=== PATIENT | male | born 1995 | race African-American/Black ===

== ENCOUNTER 2018-11-17 17:03 | Emergency (ER) | payer OTHER, SELFPAY ==
[2018-11-17 17:11] VITALS: BP 142/75; PULSE 106; RESP 16; TEMP 37.5; O2SAT 96; BMI 24.5
--- NOTE | 2018-11-17 17:16 | DI.RAD.S_ITS ---
PROCEDURE: XR FOOT LT MIN 3V INDICATIONS: basketball injury TECHNIQUE: 3 views of the foot were acquired. COMPARISON: None. FINDINGS: Bones: Focal irregularity is seen involving the medial cuneiform. The bony structures otherwise are unremarkable. Soft tissues: No tibiotalar joint effusion. Achilles tendon appears normal. IMPRESSION: Focal irregularity is seen involving the medial cuneiform. Differential diagnosis includes a nondisplaced fracture or artifactual irregularity. Please correlate with focal tenderness. If clinically appropriate, consideration could be given to a dedicated CT study. Dictated by: Kaiser Arreguin M.D. on 11/17/2018 at 16:44 Approved by: Kaiser Arreguin M.D. on 11/17/2018 at 16:45
--- NOTE | 2018-11-17 18:41 | ED_ITS ---
HPI - Extremity Injury (Lower) General Chief Complaint: Extremity Injury, Lower Stated Complaint: left foot injury playing basketball Time Seen by Provider: 11/17/18 18:17 Source: patient Mode of arrival: ambulatory Limitations: no limitations History of Present Illness HPI Narrative: 23-year-old male nonsmoker, otherwise healthy presents with chief complaint of left foot injury after playing basketball earlier today. He had gone up for a rebound and came down, landing on an inverted ankle and then was stepped on by another player. He had pain over the instep and medial aspect of his foot, primarily with ambulating. He denies numbness, tingling weakness. He denies any ankle, knee or hip pain. He denies any history of the same. MD complaint: foot injury Onset (ago): hour(s) Type of Injury: blunt and inversion Place: street/outdoors Severity: moderate Relieving factors: immobilization and rest Exacerbating factors: weight bearing Context: fall, direct blow and jumping Associated symptoms: swelling and able to partially bear weight Other symptoms: none Treatments prior to arrival: cold therapy Related Data Allergies Allergy/AdvReac Type Severity Reaction Status Date / Time No Known Drug Allergies Allergy Verified 11/17/18 17:22 Review of Systems Constitutional Denies chills, Denies fever(s), Denies lethargy and Denies weakness Eyes Denies change in vision, Denies eye discharge, Denies irritation and Denies loss of vision ENT Ears, Nose, Mouth, and Throat: Denies change in voice, Denies neck pain and Denies sore throat Cardiovascular Denies chest pain, Denies irregular heart rhythm, Denies lightheadedness, Denies palpitations, Denies dyspnea, Denies dyspnea on exertion and Denies orthopnea Respiratory Denies cough, Denies dyspnea, Denies dyspnea on exertion and Denies wheezing Gastrointestinal Gastrointestinal: Denies abdominal pain, Denies change in bowel habits, Denies diarrhea, Denies nausea and Denies vomiting Genitourinary Denies hematuria, Denies flank pain, Denies urinary incontinence and Denies urinary urgency Musculoskeletal Reports abnormal gait, Reports limited range of motion and Denies neck pain Integumentary/Breasts Denies pruritus, Denies erythema, Denies rash and Denies wounds Neurologic Reports abnormal gait, Denies confusion, Denies loss of vision and Denies weakness Psychiatric Denies anxiety, Denies confusion, Denies depression, Denies homicidal ideation and Denies suicidal ideation Endocrine Denies palpitations Hematologic/Lymphatic Denies easy bruising Allergic/Immunologic Denies wheezing PFSH Social History Smoking Status: Never smoker Social History Smoking Status: Never smoker Exam Narrative Exam Narrative: GEN: AOx3 and in mild distress EYES: Pupils are equal, round, and reactive to light and accommodation. Extraoccular muscles are intact bilaterally. There is no subconjunctival hemorrhage or exudate. CHEST: Lungs are clear to auscultation bilaterally and free of wheezes, rales, or rhonchi. Heart rate is regular rhythm, there are no murmurs, clicks, rubs, or gallops. There is no chest wall tenderness. ABD: Abdomen is soft and nontender. There is no guarding or rebound. Bowel sounds are normal in all 4 quadrants. There is no mass or organomegaly. EXT: Full painless ROM of all extremities with no loss of sensation or strength. Pain to palpation over the instep of left foot with no obvious deformity or break in the skin prove neurovascularly intact SKIN: Warm, pink, and dry. No erythema or rash Initial Vital Signs Initial Vital Signs: Vital Signs Temperature 99.5 F 11/17/18 17:11 Pulse Rate 106 H 11/17/18 17:11 Respiratory Rate 16 11/17/18 17:11 Blood Pressure 142/75 H 11/17/18 17:11 Pulse Oximetry 96 11/17/18 17:11 Procedures Orthopedic Splinting/Casting Injury #1: Side: left Lower Extremity Injury Location: foot Lower Extremity Immobilizer: boot orthosis Other Orthopedic Equipment: crutches Post splinting neuro exam: intact Post splinting vascular exam: intact Placed by: Nursing Course Orders Ordered: ED Orders 11/17/18 17:16 XR foot LT min 3V Stat Consultations Consultation #1: Called to on-call orthopedist, Dr. Oliveros whom recommends fracture boot, crutches and no weight bearing until follow up Time: 18:40 Vital Signs - 8 hr 11/17/18 19:42 Pulse Rate 83 Respiratory Rate 12 Blood Pressure 120/73 Pulse Oximetry 100 MDM - Extremity Injury (Lower) Imaging Data Foot Xray: Radiologist's impression: [address] [address] XRay Report Signed Patient: Tate Singh MMR#: [id number] : 1995Acct:[id number] Age/Sex: MDate of Service: 11/17/18 Loc: ED Accession Number: [id number] Procedure: XR foot LT min 3V Ordering Provider: Malathi Hughes D.O. PROCEDURE: XR FOOT LT MIN 3V INDICATIONS: basketball injury TECHNIQUE: 3 views of the foot were acquired. COMPARISON: None. FINDINGS: Bones: Focal irregularity is seen involving the medial cuneiform. The bony structures otherwise are unremarkable. Soft tissues: No tibiotalar joint effusion. Achilles tendon appears normal. IMPRESSION: Focal irregularity is seen involving the medial cuneiform. Differential diagnosis includes a nondisplaced fracture or artifactual irregularity. Please correlate with focal tenderness. If clinically appropriate, consideration could be given to a dedicated CT study. Dictated by: Kaiser Arreguin M.D. on 11/17/2018 at 16:44 Approved by: Kaiser Arreguin M.D. on 11/17/2018 at 16:45 Discharge Plan Departure Patient Disposition: Home Clinical Impression: Cuneiform fracture, foot Discharge Date/Time: 11/17/18 19:43 Interventions: ED Discharge Assessment Last Done: 11/17/18 19:42 Instructions: DI for Fracture Activity Restrictions/Additional Instructions: *You have been diagnosed with [left foot fracture of 1st cuneiform] *What to do: *Take medications as directed * use crutches, toe-touch weight-bearing only until follow-up with Orthopedics. I have spoken with Dr. Oliveros today request to call the office Monday for follow-up *Return to ER if you should have any new, worsening or concerning symptoms Referrals: Cabrera Oliveros MD [Physician] -
[2018-11-17 19:42] VITALS: BP 120/73; PULSE 83; RESP 12; O2SAT 100
== END 2018-11-17 19:43 | disposition home or self-care (01) ==
PROVIDERS: Emergency Provider Emergency Medicine
DX: S92.242A Displaced fracture of medial cuneiform of left foot, initial encounter for closed fracture (principal); Y93.67 Activity, basketball
CPT/HCPCS: 73630; 99283